=== PATIENT | male | born 1965 | race Two or more races ===

== ENCOUNTER 2017-05-22 22:34 | Emergency (ER) | payer MEDICAID ==
[~2017-05-22] VITALS: Ht 175.3 cm; Wt 106.6 kg
[2017-05-22] MEDS ORDERED: NKM (22:58)
[2017-05-22] MEDS ORDERED: ROBAXIN-750750 MG PO (23:19)
[2017-05-22] MEDS ORDERED: IBUPROFEN600 MG ORAL (23:19)
[2017-05-22] MEDS ORDERED: Methocarbamol 750mg tab ORAL ONE (23:45)
[2017-05-22] MEDS ORDERED: Acetaminophen 500mg (ES) tab ORAL ONE (23:45)
[2017-05-22 23:50] VITALS: BP 138/91
--- NOTE | 2017-05-23 00:13 | Emergency Room Report ---
History of Present Illness General Chief Complaint: Back Pain-No Injury Source: Patient Present Illness HPI 51-year-old male with no significant past medical history p/w back pain for 1 days. Patient states pain started gradually today. Pain is localized to right lower back, sharp in nature, radiating down the right thigh. Movement worsens pain. Patient states that he took 600 mg of Motrin which helped with the pain This is the first occurrence of back pain. Denies trauma. Denies lower extremity weakness/numbness, no bowel/bladder retention or incontinence, saddle anesthesia. Denies fever, chills, abdominal pain, n/v, dysuria/hematuria. No history of IVDA Allergies: Coded Allergies: No Known Allergies (Unverified , 05/22/17) Patient History Past Medical History: see triage record Past Surgical History: none Pertinent Family History: none Reviewed Nursing Documentation: PMH: Agreed, PSxH: Agreed Nursing Documentation-PMH Past Medical History: No Stated History Review of Systems All Other Systems: negative except mentioned in HPI Physical Exam Vital Signs Date Time Temp Pulse Resp B/P (MAP) Pulse Ox O2 Delivery O2 Flow Rate FiO2 05/22/17 22:52 98.8 75 18 138/91 96 Room Air Sp02 EP Interpretation: reviewed, normal General Appearance: normal inspection, well appearing, no apparent distress, alert, GCS 15, non-toxic Head: normocephalic, atraumatic Eyes: bilateral eye normal inspection, bilateral eye PERRL, bilateral eye EOMI ENT: normal ENT inspection, normal pharynx, normal voice, moist mucus membranes Neck: normal inspection, full range of motion, supple Respiratory: normal inspection, lungs clear, normal breath sounds, no respiratory distress, no retraction, no wheezing, speaking full sentences, chest symmetrical Cardiovascular #1: normal inspection, regular rate, rhythm, no edema, normal capillary refill Cardiovascular #2: 2+ radial (R), 2+ radial (L) Gastrointestinal: normal inspection, non tender, soft, non-distended, no guarding Genitourinary: no CVA tenderness Musculoskeletal: other - Right-sided paraspinal lower lumbar tenderness, no midline tenderness, full range of motion all extremities Neurologic: normal inspection, alert, oriented x3, responsive, motor strength/ tone normal, sensory intact, normal gait, speech normal Psychiatric: normal inspection, judgement/insight normal, memory normal Skin: normal inspection, normal color, no rash, warm/dry, well hydrated, normal turgor Medical Decision Making Diagnostic Impression: Primary Impression: Back pain ER Course 51-year-old male with back pain DDX: likely musculoskeletal back pain vs. muscular strain vs. sciatica Lumbar fracture is unlikely given patients age, no midline tenderness, no history of trauma, and that patient is ambulatory. Therefore, at this time no imaging is indicated Serious diagnoses such as cord compression, epidural abscess is unlikely in this patient given the clinical scenario and abscess of neurological symptoms or findings. Patient appears nontoxic. Plan: Tylenol as patient already took Motrin at home, Robaxin ER course: Patient has remained nontoxic appearing and ambulatory in the ED. Pain improved w/ medications Disposition: Patient will be discharged to home with prescription of motrin and robaxin. Patient cautioned of the effects of robaxin including possible impairment of physical or mental abilities. Patient was instructed to refrain from operating machinery or driving. Patient is also cautioned on the GI effects of motrin and to take sparingly. Patient verbalized understanding. Strict precautions discussed with patient on when to emergently return to the ED which includes severe/worsening back pain, leg weakness/numbness, urinary retention/incontinence, fever or chills, which may indicate severe illness. Patient is to follow up with their PMD within 5 days. Patient agrees with plan. Please note that this Emergency Department Report was dictated using [employer] instructor technology software, occasionally this can lead to erroneous entry secondary to interpretation by the dictation equipment. Last Vital Signs Date Time Temp Pulse Resp B/P (MAP) Pulse Ox O2 Delivery O2 Flow Rate FiO2 05/22/17 22:52 98.8 75 18 138/91 96 Room Air Disposition: HOME, SELF-CARE Condition: Improved Scripts Ibuprofen* (MOTRIN*) 600 Mg Tablet 600 MG ORAL Q8H Y for For Pain, #30 TAB 0 Refills Prov: Retino,Clairose M.D. 05/22/17 Methocarbamol* (ROBAXIN-750*) 750 Mg Tablet 750 MG PO QID, #28 TAB 0 Refills Prov: Retino,Clairose M.D. 05/22/17 Referrals: NOT CHOSEN [facility]/MD,REFERRING (PCP) Patient Instructions: Sciatica, Back Pain, Adult Additional Instructions: Please followup with your primary care doctor in one week. Please return to the emergency room if you're experiencing worsening back pain, numbness or weakness of legs, inability to urinate Edilia Rodarte M.D. May 23, 2017 00:13
== END 2017-05-22 23:50 | disposition home or self-care (01) ==
LOC: EMR 23:08
DX: M54.5 Low back pain (principal); M79.651 Pain in right thigh
CPT/HCPCS: 99284